=== PATIENT | female | born 1985 | race Caucasian/White ===

== ENCOUNTER 2018-01-08 12:31 | Emergency (ER) | payer OTHER ==
[~2018-01-08] VITALS: Ht 160 cm; Wt 66.0 kg
[~2018-01-08 12:31] MED LIST: PERC5TAB12 PO
[2018-01-08 12:42] VITALS: BP 134/72; PULSE 93; RESP 18; TEMP 99; O2SAT 100
[2018-01-08 13:02] VITALS: BP 134/79; PULSE 98; RESP 15; TEMP 98.1; O2SAT 100
[2018-01-08] MEDS ORDERED: SODIUM CHLOR 0.9% 1000 ML INJ 1,000 ML IV SCH (13:23)
[2018-01-08 13:25] VITALS: BP_SYST 120; BP_SYST 133; BP_DIAS 83; PULSE 85; PULSE 89; RESP 17; RESP 18; O2SAT 100
[2018-01-08] MEDS ORDERED: diphenhydrAMINE HCL 50 MG/ML VIAL IVP ONE (13:30)
[2018-01-08] MEDS ORDERED: SODIUM CHLORIDE 0.9% FLUSH 10 ML FLUSH IV FLUSH PRN (13:30)
[2018-01-08] MEDS ORDERED: RANITIDINE HCL SYRUP 150 MG/10 ML UDC PO ONE (13:30)
[2018-01-08] MEDS ORDERED: EPINEPHrine HCL (1:1000) 1 MG/ML VIAL IM ONE (13:30)
[2018-01-08] MEDS ORDERED: methylPREDNISolone SOD SUCC 125 MG/2 ML VIAL IM ONE (13:30)
--- NOTE | 2018-01-08 13:36 | PD ---
HPI Chief Complaint: Allergic/Adverse Reaction Time Seen by Provider: 13:05 Travel History International Travel<30 days: No Contact w/Intl Traveler<30days: No Traveled to known affect area: No History of Present Illness HPI 32-year-old female presents emergency department for evaluation of urticaria, swollen lips and a tight throat that started this morning while working at 10: 30 AM. Patient states she had a episode of binge drinking and started developing hives on her abdomen and her neck. She decided to go to the urgent care where they administer dexamethasone, Benadryl and Zyrtec. Says that some of the rash is gone away but has reappeared throughout the weekend. Currently says that the rash is located on the abdomen and left posterior aspects of the neck and is somewhat pruritic and some what painful to palpation. Patient denies any new exposures, contacts, drugs, travel, soaps, lotions. Says this morning she took Benadryl and Zantac along with ibuprofen for the pain from the rash and decided to come in for evaluation. She denies shortness of breath or chest pain. Patient says she does drink a significant amount of alcohol but has never had this problem before. Other medical history include hysterectomy 4 years ago for cervical cancer. Says she does have chronic headaches as well has developed one today. PFSH Past Medical History Anxiety: Yes Depression: Yes Heart Rhythm Problems: Yes Cancer: Yes (CERVICAL) Cardiovascular Problems: Yes ( ARRYTHMIAS (PT STATES SHE FEELS IRREGULAR HEART RATE)) High Cholesterol: No Chemotherapy: No Chest Pain: No Congestive Heart Failure: No Diabetes: No Endocrine: No Gastrointestinal Disorders: Yes (REFLUX) GERD: Yes Genitourinary: No Hepatitis: No Hiatal Hernia: No Immune Disorder: No Musculoskeletal: No Neurologic: No Psychiatric: Yes (ANXIETY, DEPRESSION ) Reproductive: Yes (CERVICAL CANCER) Respiratory: No Radiation Therapy: No Renal Failure: Yes Thyroid Disease: No Ulcer: No Tetanus Vaccination: Never Vaccinated Influenza Vaccination: No ?: Not LMP: 2013 Past Surgical History Abdominal Surgery: No AICD: No Body Medical Devices: NONE Cardiac Surgery: No Ear Surgery: No Endocrine Surgery: No Eye Surgery: No Genitourinary Surgery: No Gynecologic Surgery: Yes (CERVICAL CONIZATION 02/18/14 AND 04/09/14) Hysterectomy: Yes Joint Replacement: No Oral Surgery: Yes (TONSILLECTOMY) Pacemaker: No Thoracic Surgery: No Other Surgery: Yes Social History Alcohol Use: Yes (everyday) Tobacco Use: No Substance Use: No Allergies-Medications (Allergen,Severity, Reaction): Coded Allergies: penicillin G (Verified Allergy, Severe, HIVES, LOSS OF HEARING, 01/08/18) Reported Meds & Prescriptions Reported Meds & Active Scripts Active Zantac (Ranitidine HCl) 300 Mg Tab 300 Mg PO DAILY 10 Days Prednisone 20 Mg Tab 20 Mg PO BID 7 Days Review of Systems Except as stated in HPI: all other systems reviewed are Neg Physical Exam Narrative GENERAL: Well-developed, well-nourished in no apparent distress SKIN: Focused skin assessment warm/dry. Anterior abdomen-multiple urticaria without obvious excoriations. Posterior neck with urticaria Mild edema of the upper lip, unchanged throughout the visit HEAD: Atraumatic. Normocephalic. EYES: Pupils equal and round. No scleral icterus. No injection or drainage. ENT: No nasal bleeding or discharge. Mucous membranes pink and moist. NECK: Trachea midline. No JVD. No lymphadenopathy CARDIOVASCULAR: Regular rate and rhythm. No murmur appreciated. RESPIRATORY: No accessory muscle use. Clear to auscultation. Breath sounds equal bilaterally. No wheezes, rales or rhonchi GASTROINTESTINAL: Abdomen soft, non-tender, nondistended. Hepatic and splenic margins not palpable. No CVA tenderness MUSCULOSKELETAL: No obvious deformities. No clubbing. No cyanosis. No edema. NEUROLOGICAL: Awake and alert. No obvious cranial nerve deficits. Motor grossly within normal limits. Normal speech. PSYCHIATRIC: Appropriate mood and affect; insight and judgment normal. Data Data Last Documented VS Vital Signs Date Time Temp Pulse Resp B/P (MAP) Pulse Ox O2 Delivery O2 Flow Rate FiO2 01/08/18 17:19 98.2 77 15 121/72 (88) 100 01/08/18 16:07 Room Air Orders Orders Complete Blood Count With Diff (01/08/18 13:23) Comprehensive Metabolic Panel (01/08/18 13:23) Ecg Monitoring (01/08/18 13:23) Iv Access Insert/Monitor (01/08/18 13:23) Oximetry (01/08/18 13:23) Diphenhydramine Inj (Benadryl Inj) (01/08/18 13:30) Methylprednisolone So Succ Inj (Solumedr (01/08/18 13:30) Sodium Chlor 0.9% 1000 Ml Inj (Ns 1000 M (01/08/18 13:23) Sodium Chloride 0.9% Flush (Ns Flush) (01/08/18 13:30) Epinephrine (1:1000) Inj (Adrenalin (1:1 (01/08/18 13:30) Ranitidine Liq (Zantac Liq) (01/08/18 13:30) Naproxen Sodium (Anaprox Ds) (01/08/18 15:45) Ed Discharge Order (01/08/18 17:06) Labs Laboratory Tests Test 01/08/18 13:35 White Blood Count 7.4 TH/MM3 Red Blood Count 3.81 MIL/MM3 Hemoglobin 12.2 GM/DL Hematocrit 35.4 % Mean Corpuscular Volume 93.0 FL Mean Corpuscular Hemoglobin 32.0 PG Mean Corpuscular Hemoglobin Concent 34.4 % Red Cell Distribution Width 13.0 % Platelet Count 293 TH/MM3 Mean Platelet Volume 8.4 FL Neutrophils (%) (Auto) 55.4 % Lymphocytes (%) (Auto) 37.0 % Monocytes (%) (Auto) 5.7 % Eosinophils (%) (Auto) 1.6 % Basophils (%) (Auto) 0.3 % Neutrophils # (Auto) 4.1 TH/MM3 Lymphocytes # (Auto) 2.7 TH/MM3 Monocytes # (Auto) 0.4 TH/MM3 Eosinophils # (Auto) 0.1 TH/MM3 Basophils # (Auto) 0.0 TH/MM3 CBC Comment DIFF FINAL Differential Comment Blood Urea Nitrogen 9 MG/DL Creatinine 0.63 MG/DL Random Glucose 80 MG/DL Total Protein 7.4 GM/DL Albumin 4.2 GM/DL Calcium Level 9.0 MG/DL Alkaline Phosphatase 59 U/L Aspartate Amino Transf (AST/SGOT) 10 U/L Alanine Aminotransferase (ALT/SGPT) 15 U/L Total Bilirubin 0.3 MG/DL Sodium Level 143 MEQ/L Potassium Level 4.0 MEQ/L Chloride Level 108 MEQ/L Carbon Dioxide Level 29.0 MEQ/L Anion Gap 6 MEQ/L Estimat Glomerular Filtration Rate 110 ML/MIN MDM Medical Decision Making Medical Screen Exam Complete: Yes Emergency Medical Condition: Yes Differential Diagnosis Anaphylaxis, allergic reaction, contact dermatitis, erythema multiform, erythema nodosum Narrative Course 32y female presents emergency department for evaluation of swelling of her upper lip and the sensation of having a swollen throat that started this morning. Patient states that she was evaluated by urgent care and given medication to resolve this however, the rash has been intermittent and persistent since then. Vital signs are stable. Physical exam findings consistent with urticaria of the anterior abdomen and neck. Solu-Medrol, Benadryl, Zantac, epinephrine administered. @1540 upon reassessment, patient states that she feels like "her head is going to explode" and she feels her heart racing. I advised that this was secondary to the epinephrine that she was given today. Says that the rash is pretty much gone except for 2 small urticaria that are present on the left abdomen. Says that the swelling in her lip persists. Administered naproxen for the headache. This is what she normally takes for her headaches. Patient be discharged with prednisone and Zantac. Advised to use caution taking Benadryl's may make her feel drowsy. Consider follow-up with an roving carrier. If her symptoms persist or worsen return to the emergency department. Diagnosis Primary Impression: Allergic reaction Qualified Codes: T78.40XA - Allergy, unspecified, initial encounter Referrals: Primary Care Physician Additional Instructions: Follow-up with your primary care physician within 2-3 days. Consider follow-up with an roving carrier. Take all medications as prescribed. Continue [id number] Benadryl per package instructions. Scripts Ranitidine (Zantac) 300 Mg Tab 300 MG PO DAILY for 10 Days, #10 TAB 0 Refills Prov: Jeffrey Young MD 01/08/18 Prednisone (Prednisone) 20 Mg Tab 20 MG PO BID for 7 Days, #14 TAB 0 Refills Prov: Jeffrey Young MD 01/08/18 Disposition: 01 DISCHARGE HOME Condition: Stable Savana Aj Jan 08, 2018 13:36
[2018-01-08 14:04] LABS: AUTOMATED NEUTROPHIL # 4.1 TH/MM3 (1.8-7.7); BASOPHIL % 0.3 % (0.0-2.0); EOSINOPHIL # 0.1 TH/MM3 (0-0.4); EOSINOPHIL % 1.6 % (0.0-4.0); HEMATOCRIT 35.4 % (35.0-46.0); HEMOGLOBIN 12.2 GM/DL (11.6-15.3); LYMPHOCYTE # 2.7 TH/MM3 (1.0-4.8); MEAN CORPUSCULAR HGB CONC 34.4 % (32.0-36.0); MEAN PLATELET VOLUME 8.4 FL (7.0-11.0); MONO % 5.7 % (0.0-8.0); MONOCYTE # 0.4 TH/MM3 (0-0.9); NEUT % 55.4 % (16.0-70.0); PLATELET COUNT 293 TH/MM3 (150-450); RED BLOOD COUNT 3.81 MIL/MM3 (4.00-5.30); WHITE BLOOD COUNT 7.4 TH/MM3 (4.0-11.0)
[2018-01-08 14:09] LABS: ALBUMIN 4.2 GM/DL (3.4-5.0); ALT (GPT) 15 U/L (10-53); AST (GOT) 10 U/L (15-37); BLOOD UREA NITROGEN 9 MG/DL (7-18); CHLORIDE 108 MEQ/L (98-107); CREATININE 0.63 MG/DL (0.50-1.00); GLOMERULAR FILTRATION RATE 110 ML/MIN (>89); GLUCOSE,RANDOM 80 MG/DL (74-106); SODIUM (NA) 143 MEQ/L (136-145)
[2018-01-08 14:11] LABS: ALKALINE PHOSPHATASE 59 U/L (45-117); TOTAL BILIRUBIN ADULT 0.3 MG/DL (0.2-1.0); TOTAL PROTEIN 7.4 GM/DL (6.4-8.2)
[2018-01-08] MEDS ORDERED: NAPROXEN SODIUM 550 MG TAB PO ONE (15:45)
[2018-01-08 16:07] VITALS: BP 107/61; PULSE 76; RESP 15; TEMP 98.1; O2SAT 99
[2018-01-08] MEDS ORDERED: ZANT300T PO (17:04)
[2018-01-08] MEDS ORDERED: PRED20 PO (17:04)
[2018-01-08 17:19] VITALS: BP 121/72; TEMP 98.2
== END 2018-01-08 17:20 | disposition home or self-care (01) ==
LOC: NEPC 12:31
DX: T78.40XA Allergy, unspecified, initial encounter (principal); R22.0 Localized swelling, mass and lump, head; R21 Rash and other nonspecific skin eruption; F41.9 Anxiety disorder, unspecified; F32.9 Major depressive disorder, single episode, unspecified; K21.9 Gastro-esophageal reflux disease without esophagitis; Z85.41 Personal history of malignant neoplasm of cervix uteri; Z79.899 Other long term (current) drug therapy; Z88.0 Allergy status to penicillin
CPT/HCPCS: 80053; 85025; 96361; 96372; 96374; 99284; J0171; J1200; J2930; J7030